=== PATIENT | female | born 1935 | race Caucasian/White ===

== ENCOUNTER 2016-11-08 12:49 | Emergency (ER) | payer MEDICARE, BC ==
--- NOTE | ~2016-11-08 | CR170 ---
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 Ordering Physician: Leisa Canseco A.P.R.N. Primary Care Physician: Tyler Bajwa M.D. MEDICAL IMAGING REPORT This report is preliminary unless electronic signature is present. EXAM 2 views right knee, 11/08/2016 HISTORY 81-year-old female with posterior knee pain and popping sensation. Symptoms began approximately 5 days ago. No documented injury. COMPARISON None FINDINGS There is moderately advanced patellofemoral compartment joint space narrowing. Small posterior patellar osteophytes are present. There is also byxc-ga-ljaipjkt narrowing of the medial compartment of the right knee. The lateral compartment space appears fairly well preserved. Tiny tibial spine spurring. No joint effusion. No osteolytic or osteoblastic lesion. No calcified loose bodies are seen. No fracture or dislocation. IMPRESSION 1. Moderately advanced patellofemoral compartment joint space narrowing with small posterior patellar osteophytes. Srov-an-xlxlzvoi medial compartment narrowing. 2. No acute abnormality is seen within the right knee. Dictated by... Larissa Gomez M.D. THIS IS AN ELECTRONICALLY VERIFIED REPORT Larissa Gomez M.D. 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
[~2016-11-08 12:49] MED LIST: ALBUTEROL17 GM NEB; FLOVENT HFA12 GM INH; MACROBID 100 M100 MG PO; MINOCIN PO; PULMICORT200 MCG/AE INH; TEMAZEPAM PO; ZYRTEC-D T1 TAB.SR . PO
== END 2016-11-08 14:17 | disposition home or self-care (01) ==
LOC: SED 12:49
DX: S83.92XA Sprain of unspecified site of left knee, initial encounter (principal); X58.XXXA Exposure to other specified factors, initial encounter; Y92.511 Restaurant or cafe as the place of occurrence of the external cause
CPT/HCPCS: 29505; 73560; 99283